=== PATIENT | male | born 1980 | race American Indian/Alaskan Native ===

== ENCOUNTER 2018-11-19 00:34 | Emergency (ER) | payer OTHER ==
[2018-11-19 00:51] VITALS: BP 111/83
[2018-11-19] MEDS ORDERED: IBUPROFEN PO ONE (04:00)
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
== END 2018-11-19 04:19 | disposition home or self-care (01) ==
LOC: ED 00:34
DX: S39.012A Strain of muscle, fascia and tendon of lower back, initial encounter (principal); M54.2 Cervicalgia; F17.200 Nicotine dependence, unspecified, uncomplicated; V89.2XXA Person injured in unspecified motor-vehicle accident, traffic, initial encounter; Y93.89 Activity, other specified; Y92.488 Other paved roadways as the place of occurrence of the external cause; Y99.8 Other external cause status
CPT/HCPCS: 99282